=== PATIENT | male | born 1930 | race Caucasian/White ===

== ENCOUNTER 2017-08-17 18:42 | Inpatient (IN) | payer OTHER ==
[~2017-08-17] VITALS: Ht 180.3 cm; Wt 86.7 kg
[~2017-08-17 18:42] MED LIST: ACETAMINOPHEN325 M1 PO; ADVAIR HFA120 INHALA IH; ANTACID500 MG PO; BACTRIM,SEPT1 TABLET PO; BISAC-EVAC10 MG PR; CEFTRIAXONE1 G1 IV; CLARITIN,ALAVAR10 MG PO; CLARITIN10 M3 PO; DAILY VALUE1 EACH PO; DUONEB 2.5-0.5 M3 ML AEROSOL; DUONEB 2.5-0.5 M3 ML IH; ENDOCET 5-3251 EACH PO; FERROUS SULFAT325 MG PO; FLOMAX0.4 MG PO; GUAIFENESIN WI120 M1 PO; IRON325 M1 PO; LASIX20 MG PO; LASIX40 MG PO; LEVAQUIN750 MG PO; MELATIN3 MG PO; MELATONIN3 MG PO; MILK OF MAGN PO; MIRALAX17 GM PO; NEURONTIN300 MG PO; ONE DAILY TABL1 EACH PO; PERCOCET 5/31 TABLET PO; PERCOCET 7.51 TABLET PO; PREDNISONE20 MG PO; PRILOSEC20 MG PO; PROSCAR5 MG PO; REFRESH OPTIVE10 ML BOTH EYES; SERTRALINE HCL50 MG PO; SODIUM CHLORIDE1 G1 PO; TUMS500 MG PO; TYLENOL REGULA325 MG PO; ZOLOFT25 MG PO
[2017-08-17 19:31] LABS: HEMATOCRIT 32.4 % (38.0-50.0); HEMOGLOBIN 11.4 G/DL (12.5-16.6); MCH 35.6 PG (29.0-34.0); MCHC 35.2 G/DL (30.0-36.0); MCV 101.3 FL (86-99); PLATELET COUNT 193 K/uL (156-360); RBC DIS.WIDTH-CV 12.5 % (11.8-14.6); RBC DIS.WIDTH-SD 47.1 % (39-53)
[2017-08-17 19:43] LABS: ALBUMIN 2.8 g/dL (3.2-4.8)
[2017-08-17 19:44] LABS: CHLORIDE 96 mEq/L (99-109); POTASSIUM 3.9 mEq/L (3.7-5.4); SODIUM 130 mEq/L (136-147)
[2017-08-17 19:46] LABS: GLUCOSE 109 mg/dL (70-99); TOTAL PROTEIN 6.4 g/dL (6.4-8.3)
[2017-08-17 19:48] LABS: TOTAL BILIRUBIN 0.6 mg/dL (0.0-1.0)
[2017-08-17 19:49] LABS: ALKALINE PHOSPHATASE 115 IU/L (3-129)
[2017-08-17 19:50] LABS: CREATININE 1.1 mg/dL (0.6-1.3); GFR ESTIMATE (CALCULATED) > 59 mL/min/ (58.99-99999)
[2017-08-17 19:51] LABS: AST (GOT) 59 IU/L (2-34); UREA NITROGEN (BUN) 40 mg/dL (9-23)
[2017-08-17 19:53] LABS: ALT (GPT) 141 IU/L (3-49); LIPASE 20 U/L (1.0-51.0)
[2017-08-17 20:15] LABS: APPEARANCE SL.HAZY ((CLEAR)); BILIRUBIN NEGATIVE; BLOOD MODERATE; COLOR YELLOW ((YELLOW)); GLUCOSE (STRIP) NEGATIVE; KETONES NEGATIVE; LEUKOCYTES MODERATE; NITRITE NEGATIVE; PROTEIN (STRIP) 100; UROBILINOGEN 0.2 MG/DL (0.2-1.0)
[2017-08-17 20:17] LABS: BASOPHIL (%) 0.3 % (0-1); EOSINOPHIL (%) 0.1 % (0-5); IMMATURE GRANULOCYTE (%) 1.1 % (0.0-0.7); LYMPHOCYTE (%) 6.4 % (15-42); LYMPHOCYTE COUNT 0.5 K/uL (1.0-2.8); MONOCYTE (%) 8.4 % (3-12); MONOCYTE COUNT 0.7 K/uL (0-0.8); NEUTROPHIL (%) 83.7 % (45-76); NEUTROPHIL COUNT 6.7 K/uL (1.8-6.4)
[2017-08-17 21:33] LABS: BACTERIA 3+ /HPF; EPITHELIAL CELLS NONE SEEN /HPF; MUCUS NONE SEEN /LPF; RED BLOOD CELLS 0-5 /HPF (0-5); UCUL ADDED? YES
[2017-08-17 21:34] LABS: COARSE GRANULAR CASTS 0-5 /LPF; FINE GRANULAR CASTS 0-5 /LPF
[2017-08-17 21:35] LABS: HYALINE CASTS 0-5 /LPF
[2017-08-17 22:01] LABS: INTER. NORMALIZED RATIO 1.3
[2017-08-17 22:04] LABS: PTT 28.7 SEC (25-37)
[2017-08-17] MEDS ORDERED: LORAZEPAM0.5 MG PO (22:09)
[2017-08-17] MEDS ORDERED: GABAPENTIN600 MG PO (22:11)
[2017-08-17] MEDS ORDERED: LEVOFLOXACIN250 MG PO (22:12)
[2017-08-17] MEDS ORDERED: FUROSEMIDE20 MG PO (22:12)
[2017-08-17] MEDS ORDERED: FINASTERIDE5 MG PO (22:14)
[2017-08-17] MEDS ORDERED: REFRESH OPTIVE10 ML BOTH EYES (22:16)
[2017-08-17] MEDS ORDERED: LEVOTHYROXINE50 MCG PO (22:18)
[2017-08-17] MEDS ORDERED: FENTANYL1 EAC4 TD (22:19)
[2017-08-17] MEDS ORDERED: OXYCODONE-APAP1 EAC6 PO (22:20)
[2017-08-18 12:55] VITALS: BP 165/93
[2017-08-18 20:34] VITALS: BP 164/84
[2017-08-19 00:29] VITALS: BP 145/77
[2017-08-19 04:19] VITALS: BP 134/71
[2017-08-19 07:32] VITALS: BP 162/82
[2017-08-19 11:41] VITALS: BP 185/83
[2017-08-19 16:01] VITALS: BP 183/82
[2017-08-20] VITALS (7 sets, daily range): BP systolic 155–181; BP diastolic 70–91
[2017-08-20 06:04] LABS: HEMATOCRIT 34.3 % (38.0-50.0); HEMOGLOBIN 11.4 G/DL (12.5-16.6); MCH 34.1 PG (29.0-34.0); MCHC 33.2 G/DL (30.0-36.0); MCV 102.7 FL (86-99); PLATELET COUNT 228 K/uL (156-360); RBC DIS.WIDTH-CV 12.5 % (11.8-14.6); RBC DIS.WIDTH-SD 47.5 % (39-53); RED BLOOD COUNT 3.34 M/uL (4.00-5.50); WHITE BLOOD COUNT 8.5 K/uL (4.1-10.2)
[2017-08-20 06:32] LABS: ALBUMIN 2.6 G/DL (3.2-4.8); ALKALINE PHOSPHATASE 73 IU/L (3-129); ALT (GPT) 47 IU/L (3-49); AST (GOT) 19 IU/L (2-34); CHLORIDE 104 MEQ/L (99-109); CREATININE 0.9 MG/DL (0.6-1.3); GFR ESTIMATE (CALCULATED) > 59 mL/min/ (58.99-99999); GLUCOSE 101 mg/dL (70-99); PHOSPHORUS 2.5 mg/dL (2.5-4.9); TOTAL BILIRUBIN 0.5 MG/DL (0.0-1.0); TOTAL PROTEIN 5.6 G/DL (6.4-8.3); UREA NITROGEN (BUN) 26 mg/dL (9-23)
[2017-08-20 06:40] LABS: POTASSIUM 3.1 MEQ/L (3.7-5.4); SODIUM 141 MEQ/L (136-147)
[2017-08-20 10:52] LABS: C DIFF TOXIN NEGATIVE (NEGATIVE)
[2017-08-21 03:15] VITALS: BP 143/66
[2017-08-21 07:46] LABS: HEMATOCRIT 32.4 % (38.0-50.0); HEMOGLOBIN 10.7 G/DL (12.5-16.6); MCH 34.4 PG (29.0-34.0); MCV 104.2 FL (86-99); PLATELET COUNT 226 K/uL (156-360); RBC DIS.WIDTH-CV 12.8 % (11.8-14.6); RBC DIS.WIDTH-SD 49.6 % (39-53); RED BLOOD COUNT 3.11 M/uL (4.00-5.50); WHITE BLOOD COUNT 10.7 K/uL (4.1-10.2)
[2017-08-21 08:00] VITALS: BP 152/70
[2017-08-21 08:29] LABS: CHLORIDE 106 MEQ/L (99-109); CREATININE 0.7 MG/DL (0.6-1.3); GFR ESTIMATE (CALCULATED) > 59 mL/min/ (58.99-99999); GLUCOSE 88 mg/dL (70-99); SODIUM 139 MEQ/L (136-147); UREA NITROGEN (BUN) 23 mg/dL (9-23)
[2017-08-21 12:00] VITALS: BP 156/75
[2017-08-21 16:00] VITALS: BP 132/63
[2017-08-21 16:59] LABS: TROP-I INTERPRETATION NEGATIVE; TROPONIN-I 0.02 ng/mL (0.0-0.30)
[2017-08-21 20:07] VITALS: BP 110/62
[2017-08-22 01:02] LABS: TROP-I INTERPRETATION NEGATIVE; TROPONIN-I 0.02 ng/mL (0.0-0.30)
[2017-08-22 01:55] VITALS: BP 115/68
[2017-08-22 04:33] VITALS: BP 121/70
[2017-08-22 08:00] VITALS: BP 146/71
[2017-08-22 08:52] LABS: HEMATOCRIT 32.4 % (38.0-50.0); HEMOGLOBIN 10.7 G/DL (12.5-16.6); MCH 34.3 PG (29.0-34.0); MCV 103.8 FL (86-99); PLATELET COUNT 225 K/uL (156-360); RBC DIS.WIDTH-CV 12.7 % (11.8-14.6); RBC DIS.WIDTH-SD 48.9 % (39-53); RED BLOOD COUNT 3.12 M/uL (4.00-5.50); WHITE BLOOD COUNT 11.5 K/uL (4.1-10.2)
[2017-08-22 09:27] LABS: CHLORIDE 107 MEQ/L (99-109); CREATININE 0.7 MG/DL (0.6-1.3); GFR ESTIMATE (CALCULATED) > 59 mL/min/ (58.99-99999); GLUCOSE 98 mg/dL (70-99); SODIUM 140 MEQ/L (136-147); UREA NITROGEN (BUN) 16 mg/dL (9-23)
[2017-08-22 09:44] LABS: POTASSIUM 3.8 MEQ/L (3.7-5.4)
[2017-08-22 10:06] LABS: TROP-I INTERPRETATION NEGATIVE; TROPONIN-I 0.03 ng/mL (0.0-0.30)
[2017-08-22 16:00] VITALS: BP 152/82
[2017-08-22 19:55] VITALS: BP 116/58
[2017-08-22] MEDS ORDERED: INVANZ1 GM IM (20:44)
[2017-08-23 00:29] VITALS: BP 119/67
[2017-08-23 03:45] VITALS: BP 118/60
[2017-08-23 07:35] VITALS: BP 130/70
== END 2017-08-23 12:10 | disposition home or self-care (01) | DRG 445 ==
LOC: EME 18:42 → 2EAST 23:06 → EDOF 23:06 → ENRESERV 23:07 → 2EAST 08-18 12:16
PROVIDERS: Emergency Medicine; Family Medicine; Thoracic Surgery (Cardiothoracic Vascular Surgery)
PROC: 0F9430Z Drainage of Gallbladder with Drainage Device, Percutaneous Approach (ICD-10-PCS; principal; 2017-08-18)
DX: K82.2 Perforation of gallbladder (principal); K80.12 Calculus of gallbladder with acute and chronic cholecystitis without obstruction; K56.7 Ileus, unspecified; J20.9 Acute bronchitis, unspecified; F03.90 Unspecified dementia, unspecified severity, without behavioral disturbance, psychotic disturbance, mood disturbance, and anxiety; J44.0 Chronic obstructive pulmonary disease with (acute) lower respiratory infection; F32.9 Major depressive disorder, single episode, unspecified; N39.0 Urinary tract infection, site not specified; I11.0 Hypertensive heart disease with heart failure; D89.9 Disorder involving the immune mechanism, unspecified; J84.10 Pulmonary fibrosis, unspecified; D64.9 Anemia, unspecified; J43.9 Emphysema, unspecified; E83.51 Hypocalcemia; M19.90 Unspecified osteoarthritis, unspecified site; G62.9 Polyneuropathy, unspecified; E87.6 Hypokalemia; G89.29 Other chronic pain; R09.89 Other specified symptoms and signs involving the circulatory and respiratory systems; G40.909 Epilepsy, unspecified, not intractable, without status epilepticus; E03.9 Hypothyroidism, unspecified; I45.10 Unspecified right bundle-branch block; F41.9 Anxiety disorder, unspecified; G89.4 Chronic pain syndrome; N40.0 Benign prostatic hyperplasia without lower urinary tract symptoms; Z66 Do not resuscitate; R26.2 Difficulty in walking, not elsewhere classified; I50.9 Heart failure, unspecified; I48.0 Paroxysmal atrial fibrillation; Z99.81 Dependence on supplemental oxygen; Z87.891 Personal history of nicotine dependence
CPT/HCPCS: 49405; 71046; 74019; 74177; 80048; 80053; 80170; 81003; 83605; 83690; 83735; 84100; 84484; 85025; 85027; 85610; 85730; 87040; 87070; 87075; 87077; 87086; 87186; 87205; 87493; 93005; 94799; 99202; 99281; 99284; C1769; J1335; J1580; J2543; J3010; J7030; J7040; J7050

== ENCOUNTER 2017-09-01 12:51 | Emergency (ER) | payer OTHER ==
[~2017-09-01] VITALS: Ht 182.9 cm; Wt 88.5 kg
[~2017-09-01 12:51] MED LIST changes: +FENTANYL1 EAC4 TD; +FINASTERIDE5 MG PO; +FUROSEMIDE20 MG PO; +GABAPENTIN600 MG PO; +INVANZ1 GM IM; +LEVOFLOXACIN250 MG PO; +LEVOTHYROXINE50 MCG PO; +LORAZEPAM0.5 MG PO; +OXYCODONE-APAP1 EAC6 PO
[2017-09-01 14:01] LABS: HEMATOCRIT 32.4 % (38.0-50.0); MCH 35.4 PG (29.0-34.0); MCV 104.2 FL (86-99); PLATELET COUNT 258 K/uL (156-360); RBC DIS.WIDTH-CV 13.3 % (11.8-14.6); RBC DIS.WIDTH-SD 50.1 % (39-53); RED BLOOD COUNT 3.11 M/uL (4.00-5.50); WHITE BLOOD COUNT 7.3 K/uL (4.1-10.2)
[2017-09-01 14:11] LABS: ALBUMIN 3.1 g/dL (3.2-4.8); CHLORIDE 101 mEq/L (99-109); POTASSIUM 4.5 mEq/L (3.7-5.4); SODIUM 135 mEq/L (136-147)
[2017-09-01 14:13] LABS: GLUCOSE 89 mg/dL (70-99)
[2017-09-01 14:15] LABS: TOTAL BILIRUBIN 0.5 mg/dL (0.0-1.0)
[2017-09-01 14:17] LABS: ALKALINE PHOSPHATASE 69 IU/L (3-129); CREATININE 0.9 mg/dL (0.6-1.3); GFR ESTIMATE (CALCULATED) > 59 mL/min/ (58.99-99999)
[2017-09-01 14:18] LABS: UREA NITROGEN (BUN) 20 mg/dL (9-23)
[2017-09-01 14:19] LABS: AST (GOT) 20 IU/L (2-34)
[2017-09-01 14:20] LABS: ALT (GPT) 12 IU/L (3-49)
[2017-09-01 22:06] VITALS: BP 158/95
== END 2017-09-01 22:06 ==
LOC: EME 12:51
PROVIDERS: Emergency Medicine
PROC: 0F9430Z Drainage of Gallbladder with Drainage Device, Percutaneous Approach (ICD-10-PCS; principal; 2017-09-01)
DX: T85.628A Displacement of other specified internal prosthetic devices, implants and grafts, initial encounter (principal); Y83.1 Surgical operation with implant of artificial internal device as the cause of abnormal reaction of the patient, or of later complication, without mention of misadventure at the time of the procedure; K80.00 Calculus of gallbladder with acute cholecystitis without obstruction; I10 Essential (primary) hypertension; K21.9 Gastro-esophageal reflux disease without esophagitis; J44.9 Chronic obstructive pulmonary disease, unspecified; F03.90 Unspecified dementia, unspecified severity, without behavioral disturbance, psychotic disturbance, mood disturbance, and anxiety; F41.9 Anxiety disorder, unspecified; R56.9 Unspecified convulsions; Z87.891 Personal history of nicotine dependence
CPT/HCPCS: 49405; 71045; 74150; 80053; 85027; 99281; 99285; J0696; J3010

== ENCOUNTER 2017-09-30 08:31 | Emergency (ER) | payer OTHER ==
[~2017-09-30] VITALS: Ht 182.9 cm; Wt 85.2 kg
[2017-09-30 09:01] LABS: BASOPHIL (%) 0.2 % (0-1); EOSINOPHIL COUNT 0.1 K/uL (0-0.3); HEMATOCRIT 34.7 % (38.0-50.0); HEMOGLOBIN 11.8 G/DL (12.5-16.6); IMMATURE GRANULOCYTE (%) 0.6 % (0.0-0.7); LYMPHOCYTE COUNT 0.7 K/uL (1.0-2.8); MCH 35.5 PG (29.0-34.0); MCV 104.5 FL (86-99); MONOCYTE (%) 12.6 % (3-12); MONOCYTE COUNT 0.6 K/uL (0-0.8); NEUTROPHIL (%) 70.6 % (45-76); NEUTROPHIL COUNT 3.5 K/uL (1.8-6.4); PLATELET COUNT 231 K/uL (156-360); RBC DIS.WIDTH-CV 13.8 % (11.8-14.6); RBC DIS.WIDTH-SD 53.3 % (39-53); RED BLOOD COUNT 3.32 M/uL (4.00-5.50)
[2017-09-30 09:15] LABS: ALBUMIN 3.4 g/dL (3.2-4.8)
[2017-09-30 09:16] LABS: CHLORIDE 100 mEq/L (99-109); POTASSIUM 4.4 mEq/L (3.7-5.4); SODIUM 136 mEq/L (136-147)
[2017-09-30 09:18] LABS: GLUCOSE 96 mg/dL (70-99); TOTAL PROTEIN 7.4 g/dL (6.4-8.3)
[2017-09-30 09:20] LABS: TOTAL BILIRUBIN 0.4 mg/dL (0.0-1.0)
[2017-09-30 09:21] LABS: ALKALINE PHOSPHATASE 85 IU/L (3-129)
[2017-09-30 09:22] LABS: CREATININE 0.9 mg/dL (0.6-1.3); GFR ESTIMATE (CALCULATED) > 59 mL/min/ (58.99-99999)
[2017-09-30 09:23] LABS: AST (GOT) 21 IU/L (2-34); UREA NITROGEN (BUN) 18 mg/dL (9-23)
[2017-09-30 09:25] LABS: ALT (GPT) 15 IU/L (3-49); LIPASE 6 U/L (1.0-51.0)
[2017-09-30 13:04] VITALS: BP 153/82
== END 2017-09-30 13:10 ==
LOC: EME 08:31
PROVIDERS: Emergency Medicine
DX: Z43.4 Encounter for attention to other artificial openings of digestive tract (principal); K80.20 Calculus of gallbladder without cholecystitis without obstruction; F03.90 Unspecified dementia, unspecified severity, without behavioral disturbance, psychotic disturbance, mood disturbance, and anxiety; F41.9 Anxiety disorder, unspecified; I10 Essential (primary) hypertension; J44.9 Chronic obstructive pulmonary disease, unspecified; K21.9 Gastro-esophageal reflux disease without esophagitis; Z87.891 Personal history of nicotine dependence
CPT/HCPCS: 74150; 80053; 83690; 85025; 99281; 99285

== ENCOUNTER 2017-10-03 09:12 | Emergency (ER) | payer OTHER ==
[~2017-10-03] VITALS: Ht 182.9 cm; Wt 90.4 kg
[2017-10-03 10:41] LABS: BASOPHIL (%) 0.1 % (0-1); EOSINOPHIL COUNT 0.1 K/uL (0-0.3); HEMOGLOBIN 10.5 G/DL (12.5-16.6); IMMATURE GRANULOCYTE (%) 0.4 % (0.0-0.7); LYMPHOCYTE (%) 9.8 % (15-42); LYMPHOCYTE COUNT 0.8 K/uL (1.0-2.8); MCHC 33.9 G/DL (30.0-36.0); MCV 106.2 FL (86-99); MONOCYTE (%) 10.3 % (3-12); MONOCYTE COUNT 0.9 K/uL (0-0.8); NEUTROPHIL (%) 78.4 % (45-76); NEUTROPHIL COUNT 6.5 K/uL (1.8-6.4); PLATELET COUNT 236 K/uL (156-360); RBC DIS.WIDTH-CV 13.7 % (11.8-14.6); RBC DIS.WIDTH-SD 53.8 % (39-53); RED BLOOD COUNT 2.92 M/uL (4.00-5.50); WHITE BLOOD COUNT 8.2 K/uL (4.1-10.2)
[2017-10-03 10:46] LABS: INTER. NORMALIZED RATIO 1.3
[2017-10-03 10:49] LABS: CHLORIDE 102 mEq/L (99-109); POTASSIUM 5.1 mEq/L (3.7-5.4); SODIUM 135 mEq/L (136-147)
[2017-10-03 10:52] LABS: GLUCOSE 98 mg/dL (70-99); TOTAL PROTEIN 6.6 g/dL (6.4-8.3)
[2017-10-03 10:55] LABS: ALKALINE PHOSPHATASE 71 IU/L (3-129); GFR ESTIMATE (CALCULATED) > 59 mL/min/ (58.99-99999)
[2017-10-03 10:56] LABS: TOTAL BILIRUBIN 0.2 mg/dL (0.0-1.0); UREA NITROGEN (BUN) 20 mg/dL (9-23)
[2017-10-03 10:57] LABS: AST (GOT) 21 IU/L (2-34)
[2017-10-03 10:58] LABS: ALT (GPT) 19 IU/L (3-49)
[2017-10-03 10:59] LABS: LIPASE 4 U/L (1.0-51.0)
[2017-10-03 15:15] VITALS: BP 136/61
== END 2017-10-03 15:15 ==
LOC: EME 09:12
PROVIDERS: Emergency Medicine
DX: K80.20 Calculus of gallbladder without cholecystitis without obstruction (principal); Z43.4 Encounter for attention to other artificial openings of digestive tract; N28.1 Cyst of kidney, acquired; F03.90 Unspecified dementia, unspecified severity, without behavioral disturbance, psychotic disturbance, mood disturbance, and anxiety; J44.9 Chronic obstructive pulmonary disease, unspecified; I10 Essential (primary) hypertension; K21.9 Gastro-esophageal reflux disease without esophagitis; R56.9 Unspecified convulsions; F41.9 Anxiety disorder, unspecified; Z87.891 Personal history of nicotine dependence
CPT/HCPCS: 74150; 80053; 83690; 85025; 85610; 99281; 99284